=== PATIENT | male | born 1990 | race African-American/Black ===

== ENCOUNTER 2018-12-25 16:32 | Emergency (ER) | payer MEDICAID ==
[~2018-12-25] VITALS: Ht 195.6 cm; Wt 105.0 kg
[2018-12-25] MEDS ORDERED: IBUPROFEN 600MG TABLET PO ONE (20:00)
[2018-12-25 20:05] VITALS: BP 112/78
== END 2018-12-25 20:06 | disposition home or self-care (01) ==
LOC: ER 16:32
DX: S00.83XA Contusion of other part of head, initial encounter (principal); F12.10 Cannabis abuse, uncomplicated; V49.49XA Driver injured in collision with other motor vehicles in traffic accident, initial encounter; Y93.89 Activity, other specified; Y92.89 Other specified places as the place of occurrence of the external cause; Y99.8 Other external cause status
CPT/HCPCS: 99283

== ENCOUNTER 2019-05-26 18:10 | Emergency (ER) | payer MEDICAID ==
[~2019-05-26] VITALS: Ht 195.6 cm; Wt 104.0 kg
[2019-05-26 20:43] VITALS: BP 121/82
== END 2019-05-26 20:45 | disposition home or self-care (01) ==
LOC: ER 18:10
DX: H10.89 Other conjunctivitis (principal)
CPT/HCPCS: 99283